=== PATIENT | female | born 1995 | race Caucasian/White ===

== ENCOUNTER 2017-04-06 01:01 | Emergency (ER) | payer MEDICAID ==
[~2017-04-06] VITALS: Ht 154.9 cm; Wt 68.0 kg
[2017-04-06 01:07] VITALS: Ht 154.9 cm; Wt 68.0 kg
[2017-04-06 03:02] LABS: PLATELET COUNT 222 x10^3mcL (130-400); RED CELL DISTRIBUTION WIDTH 12.6 % (11.5-14.5)
[2017-04-06 03:06] LABS: CALCIUM 9.3 mg/dL (8.5-10.1); CARBON DIOXIDE 20.1 mmol/L (21-32); CHLORIDE SERUM 100 mmol/L (98-107); CREATININE SERUM 0.7 mg/dL (0.6-1.0); GFR1 > 60 mL/min; GLUCOSE SERUM 100 mg/dL (74-106); POTASSIUM SERUM 4.1 mmol/L (3.5-5.1); SODIUM SERUM 137 mmol/L (136-145)
[2017-04-06 03:07] LABS: UA SPECIFIC GRAVITY >=1.030 (1.005-1.035); microscopic required? YES; urine erythrocyte 3+ (NEGATIVE)
[2017-04-06 05:41] LABS: CALCIUM 8.8 mg/dL (8.5-10.1); CARBON DIOXIDE 23.5 mmol/L (21-32); CHLORIDE SERUM 101 mmol/L (98-107); CREATININE SERUM 0.7 mg/dL (0.6-1.0); GFR1 > 60 mL/min; GLUCOSE SERUM 94 mg/dL (74-106); POTASSIUM SERUM 4.1 mmol/L (3.5-5.1); SODIUM SERUM 137 mmol/L (136-145)
[2017-04-06 05:53] LABS: ALBUMIN 4.3 g/dL (3.4-5.0); ALKALINE PHOSPHATASE 59 U/L (46-116); ALT/SGPT 23 U/L (14-59); AST/SGOT 14 U/L (15-37); BILIRUBIN TOTAL 0.6 mg/dL (0.20-1.00)
[2017-04-06 05:58] LABS: TOTAL PROTEIN, SERUM 8.3 g/dL (6.4-8.2)
[2017-04-06 11:33] LABS: AMPHETAMINE QUAL UR NONE DETECTED (NEG <=1000)
[2017-04-06 15:02] LABS: T3 TOTAL 0.79 ng/mL
[2017-04-06 15:04] LABS: FREE T4 1.49 ng/dL (0.76-1.46); FREE THYROXINE INDEX 4.3 ug/dL (1.4-4.5); T4(THYROXINE) 11.3 ug/dL (4.7-13.3)
[2017-04-06 16:39] VITALS: BP 105/62
== END 2017-04-06 16:39 | disposition home or self-care (01) ==
LOC: ED 01:01
PROVIDERS: Emergency Medicine; Family Medicine
DX: R07.89 Other chest pain (principal); N39.0 Urinary tract infection, site not specified; E86.0 Dehydration; R13.10 Dysphagia, unspecified
CPT/HCPCS: 83880; 84439; J0696; J2270; J7030; Q0092

== ENCOUNTER 2017-11-23 19:08 | Emergency (ER) | payer MEDICAID ==
[~2017-11-23] VITALS: Ht 154.9 cm; Wt 55.3 kg
[2017-11-23 19:19] VITALS: Ht 154.9 cm; Wt 55.3 kg
[2017-11-23 20:41] LABS: microscopic required? YES; urine erythrocyte 3+ (NEGATIVE)
[2017-11-23 21:15] LABS: BASOPHIL % 0.6 % (0-2); PLATELET COUNT 225 x10^3mcL (130-400)
[2017-11-23 22:34] VITALS: BP 124/73
== END 2017-11-23 22:34 | disposition home or self-care (01) ==
LOC: ED 19:08
PROVIDERS: Emergency Medicine
DX: N39.0 Urinary tract infection, site not specified (principal); N93.8 Other specified abnormal uterine and vaginal bleeding
CPT/HCPCS: J1885; J7030

== ENCOUNTER 2017-12-15 22:25 | Emergency (ER) | payer MEDICAID ==
[~2017-12-15] VITALS: Ht 154.9 cm; Wt 54.0 kg
[2017-12-15 22:44] VITALS: Ht 154.9 cm; Wt 54.0 kg
[2017-12-16 00:11] LABS: BASOPHIL % 0.7 % (0-2); PLATELET COUNT 186 x10^3mcL (130-400); RED CELL DISTRIBUTION WIDTH 13.8 % (11.5-14.5)
[2017-12-16 00:19] LABS: CALCIUM 8.4 mg/dL (8.5-10.1); CARBON DIOXIDE 28.1 mmol/L (21-32); CHLORIDE SERUM 104 mmol/L (98-107); CREATININE SERUM 0.6 mg/dL (0.6-1.0); GFR1 > 60 mL/min; GLUCOSE SERUM 87 mg/dL (74-106); POTASSIUM SERUM 3.5 mmol/L (3.5-5.1); SODIUM SERUM 141 mmol/L (136-145)
[2017-12-16 00:34] LABS: ALBUMIN 3.7 g/dL (3.4-5.0); ALKALINE PHOSPHATASE 44 U/L (46-116); AST/SGOT 14 U/L (15-37); BILIRUBIN TOTAL 0.5 mg/dL (0.20-1.00); T4(THYROXINE) 8.3 ug/dL (4.7-13.3); TOTAL PROTEIN, SERUM 7.4 g/dL (6.4-8.2)
[2017-12-16 00:43] LABS: ALT/SGPT 19 U/L (14-59)
[2017-12-16 01:11] VITALS: BP 109/64
== END 2017-12-16 01:11 | disposition home or self-care (01) ==
LOC: ED 22:25
PROVIDERS: Emergency Medicine
DX: F41.0 Panic disorder [episodic paroxysmal anxiety] (principal); R00.2 Palpitations; R07.89 Other chest pain; R42 Dizziness and giddiness; K21.9 Gastro-esophageal reflux disease without esophagitis
CPT/HCPCS: 36415

== ENCOUNTER 2018-02-18 21:55 | Emergency (ER) | payer MEDICAID ==
[~2018-02-18] VITALS: Ht 154.9 cm; Wt 52.6 kg
[2018-02-18 22:04] VITALS: Ht 154.9 cm; Wt 52.6 kg
[2018-02-18 22:49] VITALS: BP 111/70
== END 2018-02-18 22:49 | disposition left against medical advice (07) ==
LOC: ED 21:55
DX: R07.89 Other chest pain (principal); R20.2 Paresthesia of skin; F41.9 Anxiety disorder, unspecified; K21.9 Gastro-esophageal reflux disease without esophagitis; F17.210 Nicotine dependence, cigarettes, uncomplicated; F12.10 Cannabis abuse, uncomplicated
CPT/HCPCS: 99406

== ENCOUNTER 2018-05-05 21:14 | Emergency (ER) | payer OTHER ==
[~2018-05-05] VITALS: Ht 154.9 cm; Wt 52.2 kg
[2018-05-05 21:17] VITALS: BP 125/81; Ht 154.9 cm; Wt 52.2 kg
[2018-05-05 22:43] LABS: BASOPHIL % 0.3 % (0-2); PLATELET COUNT 203 x10^3mcL (130-400); RED CELL DISTRIBUTION WIDTH 13.3 % (11.5-14.5)
[2018-05-05 22:44] LABS: CALCIUM 8.7 mg/dL (8.5-10.1); CARBON DIOXIDE 27.5 mmol/L (21-32); CHLORIDE SERUM 103 mmol/L (98-107); CREATININE SERUM 0.5 mg/dL (0.6-1.0); GFR1 > 60 mL/min; GLUCOSE SERUM 92 mg/dL (74-106); POTASSIUM SERUM 3.6 mmol/L (3.5-5.1); SODIUM SERUM 138 mmol/L (136-145)
[2018-05-05 22:49] LABS: ALBUMIN 3.5 g/dL (3.4-5.0); ALKALINE PHOSPHATASE 36 U/L (46-116); ALT/SGPT 16 U/L (14-59); AST/SGOT 13 U/L (15-37); BILIRUBIN TOTAL 0.17 mg/dL (0.20-1.00); LIPASE 195 IU/L (73-393); TOTAL PROTEIN, SERUM 7.7 g/dL (6.4-8.2)
== END 2018-05-05 23:51 | disposition home or self-care (01) ==
LOC: ED 21:14
PROVIDERS: Emergency Medicine
DX: O20.0 Threatened abortion (principal); F41.9 Anxiety disorder, unspecified; K21.9 Gastro-esophageal reflux disease without esophagitis
CPT/HCPCS: 36415

== ENCOUNTER 2018-06-16 00:03 | Emergency (ER) | payer OTHER ==
[~2018-06-16] VITALS: Ht 154.9 cm; Wt 53.5 kg
[2018-06-16 00:14] VITALS: BP 108/69; Ht 154.9 cm; Wt 53.5 kg
[2018-06-16 02:27] LABS: microscopic required? YES; urine erythrocyte 2+ (NEGATIVE)
== END 2018-06-16 02:59 | disposition home or self-care (01) ==
LOC: ED 00:03
PROVIDERS: Emergency Medicine
DX: O20.0 Threatened abortion (principal); F41.9 Anxiety disorder, unspecified; R82.71 Bacteriuria; K21.9 Gastro-esophageal reflux disease without esophagitis

== ENCOUNTER 2018-11-01 21:25 | Emergency (ER) | payer OTHER ==
[~2018-11-01] VITALS: Ht 154.9 cm; Wt 63.0 kg
[2018-11-01 21:32] VITALS: Ht 154.9 cm; Wt 63.0 kg
[2018-11-01 22:18] LABS: microscopic required? YES; urine erythrocyte NEGATIVE (NEGATIVE)
[2018-11-02 00:38] VITALS: BP 105/71
== END 2018-11-02 00:38 | disposition left against medical advice (07) ==
LOC: ED 21:25
PROVIDERS: Emergency Medicine
DX: O41.93X0 Disorder of amniotic fluid and membranes, unspecified, third trimester, not applicable or unspecified (principal); R10.30 Lower abdominal pain, unspecified; O99.343 Other mental disorders complicating pregnancy, third trimester; F41.9 Anxiety disorder, unspecified; K21.9 Gastro-esophageal reflux disease without esophagitis; Z3A.35 35 weeks gestation of pregnancy

== ENCOUNTER 2019-01-19 10:17 | Emergency (ER) | payer OTHER ==
[~2019-01-19] VITALS: Ht 154.9 cm; Wt 54.0 kg
[2019-01-19 10:24] VITALS: Ht 154.9 cm; Wt 54.0 kg
[2019-01-19 12:08] VITALS: BP 104/61
== END 2019-01-19 12:16 | disposition home or self-care (01) ==
LOC: ED 10:17
DX: J02.9 Acute pharyngitis, unspecified (principal); R07.89 Other chest pain; F41.9 Anxiety disorder, unspecified; K21.9 Gastro-esophageal reflux disease without esophagitis

== ENCOUNTER 2019-05-10 23:08 | Emergency (ER) | payer OTHER ==
[~2019-05-10] VITALS: Ht 154.9 cm; Wt 55.8 kg
[2019-05-10 23:16] VITALS: Ht 154.9 cm; Wt 55.8 kg
[2019-05-11 00:43] VITALS: BP 111/72
== END 2019-05-11 00:43 | disposition home or self-care (01) ==
LOC: ED 23:08
DX: R07.89 Other chest pain (principal); K21.9 Gastro-esophageal reflux disease without esophagitis

== ENCOUNTER 2019-05-23 03:15 | Emergency (ER) | payer OTHER ==
[~2019-05-23] VITALS: Ht 154.9 cm; Wt 54.9 kg
[2019-05-23 03:25] VITALS: Ht 154.9 cm; Wt 54.9 kg
[2019-05-23 05:25] VITALS: BP 101/61
== END 2019-05-23 05:25 | disposition home or self-care (01) ==
LOC: ED 03:15
DX: K21.9 Gastro-esophageal reflux disease without esophagitis (principal)

== ENCOUNTER 2019-06-19 23:54 | Emergency (ER) | payer OTHER ==
[~2019-06-19] VITALS: Ht 154.9 cm; Wt 54.4 kg
[2019-06-19 23:59] VITALS: Ht 154.9 cm; Wt 54.4 kg
[2019-06-20 01:45] VITALS: BP 112/83
== END 2019-06-20 01:45 | disposition home or self-care (01) ==
LOC: ED 23:54
DX: J02.0 Streptococcal pharyngitis (principal); Z98.890 Other specified postprocedural states
CPT/HCPCS: J0561; J1885

== ENCOUNTER 2019-07-08 19:00 | Emergency (ER) | payer OTHER, SELFPAY ==
[~2019-07-08] VITALS: Ht 154.9 cm; Wt 54.0 kg
[2019-07-08 19:02] VITALS: Ht 154.9 cm; Wt 54.0 kg
[2019-07-08 21:09] VITALS: BP 111/59
== END 2019-07-08 21:10 | disposition home or self-care (01) ==
LOC: ED 19:00
DX: R05 Cough (principal); R07.89 Other chest pain; R50.9 Fever, unspecified; J02.9 Acute pharyngitis, unspecified; K21.9 Gastro-esophageal reflux disease without esophagitis
CPT/HCPCS: 87804; Q0092; U0002

== ENCOUNTER 2019-07-20 14:03 | Emergency (ER) | payer OTHER ==
[~2019-07-20] VITALS: Ht 154.9 cm; Wt 56.7 kg
[2019-07-20 14:17] VITALS: Ht 154.9 cm; Wt 56.7 kg
[2019-07-20 15:38] LABS: BASOPHIL % 0.6 % (0-2); PLATELET COUNT 248 x10^3mcL (130-400)
[2019-07-20 15:41] LABS: RED CELL DISTRIBUTION WIDTH 15.1 % (11.5-14.5)
[2019-07-20 15:43] LABS: CALCIUM 8.9 mg/dL (8.5-10.1); CARBON DIOXIDE 29.9 mmol/L (21-32); CHLORIDE SERUM 99 mmol/L (98-107); CREATININE SERUM 0.8 mg/dL (0.6-1.0); GFR1 > 60 mL/min; GLUCOSE SERUM 121 mg/dL (74-106); POTASSIUM SERUM 3.5 mmol/L (3.5-5.1); SODIUM SERUM 137 mmol/L (136-145)
[2019-07-20 15:48] LABS: ALBUMIN 3.9 g/dL (3.4-5.0); ALKALINE PHOSPHATASE 50 U/L (46-116); ALT/SGPT 21 U/L (14-59); AST/SGOT 13 U/L (15-37); BILIRUBIN TOTAL 0.2 mg/dL (0.20-1.00); TOTAL PROTEIN, SERUM 7.6 g/dL (6.4-8.2)
[2019-07-20 15:52] LABS: AMPHETAMINE QUAL UR NONE DETECTED (See below)
[2019-07-20 17:40] VITALS: BP 109/63
== END 2019-07-20 16:58 | disposition home or self-care (01) ==
LOC: ED 14:03
PROVIDERS: Emergency Medicine
DX: F41.9 Anxiety disorder, unspecified (principal); F12.10 Cannabis abuse, uncomplicated; K21.9 Gastro-esophageal reflux disease without esophagitis
CPT/HCPCS: J7030

== ENCOUNTER 2019-08-13 20:18 | Emergency (ER) | payer OTHER ==
[~2019-08-13] VITALS: Ht 154.9 cm; Wt 50.3 kg
[2019-08-13 20:28] VITALS: Ht 154.9 cm; Wt 50.3 kg
[2019-08-13 21:33] VITALS: BP 106/56
== END 2019-08-13 21:33 | disposition home or self-care (01) ==
LOC: ED 20:18
DX: N39.0 Urinary tract infection, site not specified (principal); K21.9 Gastro-esophageal reflux disease without esophagitis; Z98.890 Other specified postprocedural states

== ENCOUNTER 2019-09-21 09:36 | Emergency (ER) | payer OTHER ==
[~2019-09-21] VITALS: Ht 154.9 cm; Wt 50.8 kg
[2019-09-21 09:46] VITALS: BP 122/74; Ht 154.9 cm; Wt 50.8 kg
== END 2019-09-21 09:50 | disposition left against medical advice (07) ==
LOC: ED 09:36
DX: Z53.21 Procedure and treatment not carried out due to patient leaving prior to being seen by health care provider (principal)